=== PATIENT | female | born 1990 | race Caucasian/White ===

== ENCOUNTER 2021-09-06 21:02 | Emergency (ER) | payer OTHER ==
[2021-09-06 21:34] VITALS: BP 128/85; PULSE 79; TEMP 97.8; BMI 29.7
[2021-09-06 22:50] LABS: BASO % 1.2 % (0-2.0); EOS % 4.4 % (0-4.5); HEMATOCRIT 40.6 % (32.4-45.2); HEMOGLOBIN 13.8 GM/dL (10.7-15.3); LYMPH % 32.2 % (8-40); MCH 30.7 pg (25.7-33.7); MCHC 33.9 g/dl (32.0-36.0); MEAN CELL VOLUME 90.7 fl (80-96); MEAN PLT VOLUME 9.3 fl (7.5-11.1); MONO % 7.2 % (3.8-10.2); PLATELET COUNT 217 10^3/uL (134-434); RBC 4.48 M/mm3 (3.60-5.2); RDW 12.5 % (11.6-15.6); WHITE BLOOD COUNT 6.5 K/mm3 (4.0-10.0)
[2021-09-06 23:04] LABS: INR 1.07 (0.83-1.09); PROTHROMBIN TIME (PATIENT) 12.5 SEC (9.7-13.0)
[2021-09-06 23:14] LABS: CHLORIDE 107 mmol/L (98-107); SODIUM 140 mmol/L (136-145)
[2021-09-06 23:18] LABS: ALBUMIN 3.8 g/dl (3.4-5.0); ANION GAP 3 MMOL/L (8-16); BLOOD UREA NITROGEN 10.6 mg/dL (7-18); CALCIUM 8.5 mg/dL (8.5-10.1); CO2 30 mmol/L (21-32); GLUCOSE,RANDOM 93 mg/dL (74-106)
[2021-09-06 23:21] LABS: CREATININE 0.8 mg/dL (0.55-1.3); SGPT/ALT 87 U/L (13-61)
[2021-09-06 23:22] LABS: SGOT/AST 41 U/L (15-37)
[2021-09-06 23:23] LABS: BILIRUBIN,TOTAL 0.9 mg/dL (0.2-1); TOT PROT 6.9 g/dl (6.4-8.2)
[2021-09-06 23:24] LABS: ALK PHOS 110 U/L (45-117)
== END 2021-09-07 02:42 | disposition home or self-care (01) ==
LOC: JER 21:02
DX: R07.89 Other chest pain (principal)
CPT/HCPCS: 36415; 71046-TC-FY; 71275-TC; 80053; 82550; 84484; 84702; 85025; 85379; 85610; 93005; 93010; 99284-25